=== PATIENT | female | born 1970 | race Caucasian/White ===

== ENCOUNTER → 2023-08-23 | Outpatient (CLI) | payer OTHER ==
--- NOTE | 2023-08-23 11:27 | XR ---
EXAMINATION TYPE: XR lumbar spine 2 or 3V DATE OF EXAM: 08/23/2023 COMPARISON: None HISTORY: Pain TECHNIQUE: Three-view lumbar spine FINDINGS: There are 5 lumbar-type vertebral bodies. Pedicles are intact. Mild grade 1 spondylolisthes is of L5 anteriorly on S1 may be present. Some mild disc space narrowing is present L5-S1. Remaining disc heights are preserved. Vertebral body heights are preserved. Alignment is otherwise unremarkable . IMPRESSION: 1. Mild grade 1 spondylolisthesis of L5 anteriorly on S1 with mild degenerative disc change L5-S1.
== END | disposition home or self-care (01) ==
LOC: RADXRMAIN 10:50
PROVIDERS: ATTEND Family Medicine
DX: M51.37 Other intervertebral disc degeneration, lumbosacral region (principal); M43.17 Spondylolisthesis, lumbosacral region
CPT/HCPCS: 72100